=== PATIENT | male | born 1945 | race Native Hawaiian/Other Pacific Islander ===

== ENCOUNTER → 2019-01-24 | Outpatient (CLI) | payer MEDICARE ==
[~2019-01-24] MED LIST: ALPR.25 PO; CITA20 PO; FENOFIBRATE PO; HYDR-86 PO; NITR.4SL SL; OMEP20ER PO
== END | disposition home or self-care (01) ==
LOC: LAB SHORT 11:10 → OLS 11:10
DX: R73.01 Impaired fasting glucose (principal)
CPT/HCPCS: 82043

== ENCOUNTER → 2019-02-05 | Outpatient (CLI) | payer MEDICARE | END | disposition home or self-care (01) | LOC: LAB SHORT 15:08 → LAB 15:08 → LAB FUT 01-30 15:55 | DX: D89.2 Hypergammaglobulinemia, unspecified (principal); R42 Dizziness and giddiness; E78.5 Hyperlipidemia, unspecified | CPT/HCPCS: 81050 ==

== ENCOUNTER 2020-02-08 12:30 | Emergency (ER) | payer MEDICARE ==
[~2020-02-08] VITALS: Ht 175.3 cm; Wt 95.2 kg
[2020-02-08 13:32] LABS: BASOPHILS ABSOLUTE AUTO 0.06 K/mm3 (0.00-0.23); BASOPHILS PERCENT AUTO 1 % (0-2); EOSINOPHILS ABSOLUTE AUTO 0.09 K/mm3 (0.00-0.68); EOSINOPHILS PERCENT AUTO 1 % (0-6); Hematocrit 46.7 % (37.0-53.0); IMMATURE GRAN ABSOLUTE AUTO 0.04 K/mm3 (0.00-0.10); IMMATURE GRAN PERCENT AUTO 1 % (0-1); LYMPHOCYTES ABSOLUTE AUTO 3.14 K/mm3 (0.84-5.20); LYMPHOCYTES PERCENT AUTO 40 % (21-46); MONOCYTES PERCENT AUTO 9 % (4-13); Mean Corpuscular HGB 28.8 pg (26.0-34.0); Mean Corpuscular HGB Conc 32.1 g/dL (31.5-36.5); Mean Corpuscular Volume 90 fL (80-100); NEUTROPHILS ABSOLUTE AUTO 3.84 K/mm3 (1.96-9.15); NEUTROPHILS PERCENT AUTO 49 % (41-73); RDW Coefficient Variation 12.4 % (11.7-14.2); RDW Standard Deviation 40.7 fL (35.1-46.3); Red Blood Cell Count 5.21 M/mm3 (4.30-5.90); White Blood Cell Count 7.87 K/mm3 (4.00-11.30)
[2020-02-08 13:34] LABS: Mean Platelet Volume 10.3 fL (9.1-12.4); Platelet Count 236 K/mm3 (150-400)
[2020-02-08 13:40] LABS: International Normalized Ratio 0.98; Prothrombin Time Results 10.5 Sec (9.7-11.5)
[2020-02-08 13:47] LABS: Alanine Aminotransfer (ALT/SGP 34 U/L (12-78); Albumin/Globulin Ratio 0.9 (0.8-1.8); Alk Phos 79 U/L (50-136); Anion Gap 4 mmol/L (6-16); Aspartate Aminotrans (AST/SGOT 31 U/L (12-37); Bilirubin, Total 0.5 mg/dL (0.1-1.0); Blood Urea Nitrogen 21 mg/dL (8-24); Bun/Creatinine Ratio 23.3 (12.0-20.0); CO2, Blood 29 mmol/L (21-32); Calcium, Blood 9.4 mg/dL (8.5-10.1); Chloride, Blood 103 mmol/L (98-108); Globulin, Blood 4.4 g/dL (2.2-4.0); Glomerular Filtration Rate >60 (60-); Glucose, Blood 114 mg/dL (70-99); Potassium, Blood 4.4 mmol/L (3.5-5.5); Sodium, Blood 136 mmol/L (136-145); Total Protein, Blood 8.4 g/dL (6.4-8.2)
[2020-02-08] MEDS ORDERED: DULOXETINE HCL60 M1 PO (16:16)
[2020-02-08] MEDS ORDERED: FENOFIBRIC ACI135 MG PO (16:16)
[2020-02-08] MEDS ORDERED: SYMBICORT 16010.2 GM (16:17)
[2020-02-08 18:09] LABS: Source, Urine Voided
[2020-02-08] MEDS ORDERED: Aspirin EC81 MG PO (18:12)
[2020-02-08 18:13] LABS: Appearance, Urine Clear (Clear); Bilirubin, Urine Neg (Neg); Blood, Urine Neg (Neg); Color, Urine Yellow (P-Yellow); Glucose Qualitative, Urine Neg (Neg); Ketones, Urine Neg (Neg); Leukocyte Esterase, Urine Neg (Neg); Nitrite, Urine Neg (Neg); Protein, Urine Neg (Neg); Specific Gravity, Urine 1.015 (1.003-1.022); Urobilinogen, Urine NORM (Normal); pH, Urine 6.5 (5.0-8.0)
== END 2020-02-08 18:26 | disposition home or self-care (01) ==
LOC: ER 12:30
PROVIDERS: Emergency Medicine
DX: G45.9 Transient cerebral ischemic attack, unspecified (principal); Z79.899 Other long term (current) drug therapy; Z87.891 Personal history of nicotine dependence
CPT/HCPCS: 36415; 70450; 70551; 80053; 81003; 82947; 84484; 85025; 85610; 93005; 93010; 93880; 99285-25

== ENCOUNTER 2020-12-31 12:49 | Day surgery (SDC) | payer MEDICARE ==
[~2020-12-31] VITALS: Ht 177.8 cm; Wt 86.0 kg
[~2020-12-31 12:49] MED LIST changes: +Aspirin EC81 MG PO; +DULOXETINE HCL60 M1 PO; +FENOFIBRIC ACI135 MG PO; +SYMBICORT 16010.2 GM
[2020-12-31] MEDS ORDERED: ALBU2.5V5 (13:20)
[2020-12-31] MEDS ORDERED: LOSA25 (13:21)
[2020-12-31] MEDS ORDERED: ATOR40TA (13:22)
== END 2020-12-31 15:03 | disposition home or self-care (01) ==
LOC: ORSCSDS 12:49
PROVIDERS: Internal Medicine Gastroenterology
PROC: 0DBK8ZX Excision of Ascending Colon, Via Natural or Artificial Opening Endoscopic, Diagnostic (ICD-10-PCS; principal; 2020-12-31 14:00)
PROC: 0DBL8ZX Excision of Transverse Colon, Via Natural or Artificial Opening Endoscopic, Diagnostic (ICD-10-PCS; principal; 2020-12-31 14:00)
PROC: 0DBM8ZX Excision of Descending Colon, Via Natural or Artificial Opening Endoscopic, Diagnostic (ICD-10-PCS; principal; 2020-12-31 14:00)
DX: Z12.11 Encounter for screening for malignant neoplasm of colon (principal); Z86.010 Personal history of colon polyps; K22.70 Barrett's esophagus without dysplasia; D12.2 Benign neoplasm of ascending colon; D12.4 Benign neoplasm of descending colon; D12.3 Benign neoplasm of transverse colon; K57.30 Diverticulosis of large intestine without perforation or abscess without bleeding; Z80.0 Family history of malignant neoplasm of digestive organs; E11.9 Type 2 diabetes mellitus without complications; Z87.891 Personal history of nicotine dependence; E66.9 Obesity, unspecified; Z68.30 Body mass index [BMI] 30.0-30.9, adult; Z79.82 Long term (current) use of aspirin; Z79.899 Other long term (current) drug therapy
CPT/HCPCS: 82947; 88305; 93005; 93010; J0330; J0461; J2405; J2704; J7120

== ENCOUNTER → 2021-10-26 | Outpatient (CLI) | payer MEDICARE ==
[~2021-10-26] MED LIST changes: +ALBU2.5V5; +ATOR40TA; +LOSA25
[2021-10-27 16:58] LABS: Microalb/Creat Ratio UR, Rand 13.111 mg/g (0.000-30.000); Microalbumin, Random Urine 17.7 mg/L (0.000-20.000)
== END | disposition home or self-care (01) ==
LOC: LAB 10:37 → LAB SHORT 10:37 → EDSTATUS 13:01
PROVIDERS: Physician Assistant
DX: R73.03 Prediabetes (principal)
CPT/HCPCS: 82043; 82570